=== PATIENT | male | born 1955 | race Caucasian/White ===

== ENCOUNTER 2016-07-01 07:08 | Inpatient (IN) | payer OTHER ==
[2016-07-01] VITALS (71 sets, daily range): BP systolic 135–141; BP diastolic 92–95; PULSE 72–73; TEMP 97.5–97.6; O2SAT 92–100
[~2016-07-01] VITALS: Ht 188 cm; Wt 93.9 kg
[~2016-07-01 07:08] MED LIST: CELLCEPT 250MG250 MG PO; CIPRO 500MG TA500 MG PO; COLACE 100100 MG/CAP PO; FLAGYL500 MG PO; FLOMAX 0.40.4 MG/CAP PO; MOTRIN 200200 MG/TAB PO; NORCO 325 MG-51 TAB PO; NORVASC 5MG5 MG/TAB PO; NUTRILYTE 20 ML20 ML; OSCAL 500 TAB500 MG PO; PREDNISONE10 MG PO; PREDNISONE20 MG PO; PROSCAR 5MG5 MG PO; PYRIDIUM200 M1 PO; SMZ/TMPDS PO; TENORMIN 5050 MG/TAB PO; VITAMIND3 5000
[2016-07-01 07:37] LABS: BASO % 0.3 % (0.0-2.0); EOS # 0.2 (0.0-0.7); EOS % 1.9 % (0-4.0); GRAN # 6.7 (1.4-6.5); GRAN % 67.7 % (42.2-75.2); HEMATOCRIT 43.4 % (42.0-52.0); HEMOGLOBIN 14.3 g/dl (13.5-18.0); LYMPH # 1.7 (1.2-3.4); LYMPH % 17.3 % (20.0-51.0); MEAN CELL VOLUME 85 fl (80.0-100.0); MEAN CORPUSCULAR HEMOGLOBIN 28 pg (27.0-31.0); MEAN CORPUSCULAR HGB CONC 33 g/dl (33.0-37.0); MEAN PLATELET VOLUME 10.7 fl (7.4-10.4); MONO # 1.2 (0.1-0.6); MONO % 12.4 % (1.7-9.3); PLATELET COUNT 147 K/mm3 (130-400); RED BLOOD COUNT 5.09 M/mm3 (4.20-5.60); WHITE BLOOD COUNT 9.9 K/mm3 (4.8-10.8)
[2016-07-01 07:38] LABS: PROTHROMBIN TIME 10.5 SECONDS (9.7-12.8)
[2016-07-01 07:54] LABS: ADJUSTED CALCIUM 9.2 mg/dL (8.4-10.2); BILIRUBIN,TOTAL 0.8 mg/dL (0.0-1.0); C-REACTIVE PROTEIN 2.7 mg/dL (0.0-0.9); CALCIUM 9.2 mg/dL (8.4-10.2); CREATININE, serum 2.25 mg/dL (0.66-1.25); POTASSIUM 4.1 mmol/L (3.4-5.0); TOTAL PROTEIN 7.6 gm/dL (6.4-8.2)
[2016-07-01 08:03] LABS: ERYTHROCYTE SEDIMENTATION RATE 25 mm/hr (0-30)
[2016-07-01 08:16] LABS: TROPONIN-I 0.041 ng/mL (0.000-0.034)
[2016-07-01] MEDS ORDERED: PREDNISONE 5MG5 MG PO (09:58)
[2016-07-01] MEDS ORDERED: PREDNISONE1 MG PO (09:59)
== END 2016-07-01 16:00 | disposition short-term general hospital (02) | DRG 311 ==
LOC: COL.ER 07:08 → ICU 08:38
PROVIDERS: Emergency Medicine
DX: I20.0 Unstable angina (principal); I47.2 Ventricular tachycardia; N13.2 Hydronephrosis with renal and ureteral calculous obstruction; N18.3 Chronic kidney disease, stage 3 (moderate); Z87.891 Personal history of nicotine dependence
CPT/HCPCS: 99223-AI; J0282; J1650; J2060; J2405; J7030; J7060